=== PATIENT | female | born 1945 | race African-American/Black ===

== ENCOUNTER → 2016-03-05 | Outpatient (CLI) | payer OTHER ==
[~2016-03-05] MED LIST: ACETAMINOPHEN-1 EAC1 PO; ACETAMINOPHEN-1 EAC2 PO; ACETAMINOPHEN325 M1 PO; ADULT LOW DOSE81 MG PO; AFLURIA 2045 MCG/0.4; ALBUTEROL2.5 MG/31 IH; AMBIEN 10 MG TA10 MG PO; AMBIEN 5 MG TABL5 M1 PO; AMITRIPTYLINE H25 M2; AMITRIPTYLINE H25 M2 PO; AMLODIPINE BESY10 MG PO; AMOXICILLIN 50500 M1 PO; AMOXICILLIN PO; APRESOLINE; ASPIR 8181 MG PO; ATIVAN1 MG PO; AVELOX 400 MG400 M1 PO; BACTRIM DS TAB1 EACH PO; BENADRYL25 MG PO; BENAZEPRIL HCL10 MG PO; BENTYL 10 MG CA10 MG PO; BENTYL10 MG PO; BIAXIN 500 MG500 M1 PO; CARAFATE 1 GM TA1 GM PO; CARAFATE 11 GM/10 M1 PO; CARISOPRODOL 3350 M1 OR; CARISOPRODOL 3350 MG PO; CIPRO500 MG PO; CIPROFLOXACIN500 M3 OR; CIPROFLOXACIN500 M3 PO; CITRATE OF MAG296 ML PO; CLONIDINE HCL0.2 M2 PO; CLONIDINE HCL0.3 M2 PO; CLONIDINE TOP; COLACE 100 MG100 MG PO; COLACE100 MG PO; CYMBALTA30 MG PO; CYMBALTA60 MG; CYMBALTA60 MG PO; DOXYCYCLINE 10100 M1 PO; DUONEB 2.5-0.5 M3 ML; FEXOFENADINE H180 MG PO; FLAGYL500 MG PO; FLONASE 0.05%50 MCG NASAL; GLIPIZIDE 10 MG10 MG PO; HYDRALAZINE 2525 M1 PO; HYDRALAZINE 5050 MG PO; HYDROXYZINE HCL25 M1 PO; IMDUR 30 MG TAB30 M1 PO; IRON325 PO; K-DUR 20 MEQ T20 MEQ PO; KEFLEX500 MG PO; KEPPRA XR750 MG PO; LASIX 40 MG TAB40 M2 PO; LEVAQUIN 250 M250 MG PO; LEVAQUIN 500 M500 M2 PO; LEVAQUIN 500 M500 M3 PO; LEVAQUIN 500 M500 MG PO; LEVAQUIN 750 M750 MG PO; LEVSIN-SL0.125 MG SL; LYRICA 75 MG CA75 MG; LYRICA OR; LYRICA PO; LYRICA150 MG PO; MEDROLDOSEPACK PO; METFORMIN HCL500 MG PO; MIRALAX17 GM PO; MIRALAX255 GM PO; MS CONTIN 30 MG30 M1; MUCINEX TA600 MG/TA2 PO; MUCINEX600 MG PO; MULTIVITAMIN PO; NORCO 5-325 TA1 EACH PO; NORCO 7.5-3251 EACH PO; NORVASC10 MG PO; NOVOLOG100 UNIT/1 SUBQ; OMEPRAZOLE PO; OSTEO BI-FLEX1 EAC1 PO; OXYCODON-ACETA1 EAC1 PO; OXYCODONE HCL5 M1 PO; OXYCONTIN; OXYCONTIN10 M1 PO; OXYCONTIN20 M1; PANTOPRAZOLE SO40 M1; PHENERGAN 25 MG25 M1 PO; PNEUMOVAX25 MCG/0.5; POTASSIUM20 PO; PREDNISONE 10 M10 MG PO; PREDNISONE50 MG PO; PRILOSEC OTC20 MG PO; PROTONIX40 M1 PO; PROTONIX40 M2; PROTONIX40 M2 PO; PROVENTIL HFA6.7 G1 INH; REPLESTA50000 UNIT PO; ROXICODONE5 M1; ROXICODONE5 M2 PO; SENNA PO; SENOKOT-S1 TA1 PO; SEROQUEL XR50 MG PO; SERTRALINE HCL50 MG PO; STOOL SOFTENER1 EAC1 PO; SYMBICORT160 MCG/4. INH; SYSTANE BALANCE10 ML; TRAMADOL 50 MG50 MG PO; TUMS ULTRA400 MG; TYLENOL PM; TYLENOL325 MG PO; ULTRAM 50MG TAB50 MG PO; VENTOLIN HFA 1818 GM INH; VICODIN 5-5001 EACH PO; VIMPAT50 MG PO; XANAX 0.25 MG0.25 MG PO; ZOFRAN4 MG PO; ZOFRAN8 MG DIS; ZPAK PO; [UNRECOGNIZED DRUG - OTHER]; [UNRECOGNIZED DRUG - OTHER] PO
--- NOTE | ~2016-03-05 | CARDNUC ---
[facility] [place] [address] CARDIAC NUCLEAR IMAGING REPORT Name: MADISYNDARREL Stephani Room #: REG [facility]#: [id number] Admission: 03/05/16 Attend Phys: Siomara Kim Discharge: Date of : 49 Date of Service: 03/05/16 193 Report #: [id number] THIS REPORT FOR: //name// CC: Siomara Arora DATE OF SERVICE: 03/05/2016 VASODILATOR GATED SPECT MYOCARDIAL PERFUSION IMAGING: Regadenoson. 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 DATE OF STUDY: 03/05/2016 INDICATIONS FOR STUDY: Chest pain. RISK FACTORS: Age, hypertension, diabetes mellitus. CARDIAC HISTORY: Congestive heart failure. CARDIAC MEDICATIONS: Hydralazine, amlodipine, and Imdur. PROCEDURE: The patient was given 0.4 mg of intravenous regadenoson (Lexiscan) administered over approximately 20 seconds. The patient did not complain of chest discomfort during the infusion. At baseline the BP was 144/66 and the HR was 71; at completion of the regadenoson infusion the BP was 110/53 and the HR was 88. At completion of the recovery phase the BP was 122/50 and the HR was 78. The baseline EKG demonstrated normal sinus rhythm, nonspecific ST-T wave changes. The EKG at completion of the administration of regadenoson demonstrated no significant changes. Rhythm disturbances included none. Gated-SPECT myocardial perfusion imaging was performed using a 1-day imaging protocol and a technetium isotope technique. The 10.3 mCi of Tc-99m sestamibi was administered intravenously at rest 33.0 mCi of Tc-99m sestamibi was administered intravenously within 20 seconds of the completion of the administration of regadenoson. Imaging was obtained in the supine position and when feasible, adjunctive stress imaging in the prone position was obtained. FINDINGS: The overall quality of the study was satisfactory. There was evidence of attenuation artifact. There was no evidence of abnormal extracardiac uptake of the radionuclide. The baseline imaging study demonstrated homogeneous uptake of isotope in all segments of the myocardium with the exception of the anteroapical wall which had a region of photopenia. The imaging obtained following the administration of [facility] [address] [place] [address] CARDIAC NUCLEAR IMAGING REPORT Name: DARREL MARS Room #: REG [facility]#: [id number] Admission: 03/05/16 Attend Phys: Siomara Kim Discharge: Date of : 49 Date of Service: 03/05/16 1937 Report #: [id number] the vasodilator demonstrated no significant changes. On gated analysis the left ventricle demonstrated normal contractility. The gated ejection fraction was 82%. The left ventricle was of normal size at rest and did not dilate with administration of the vasodilator. IMPRESSIONS: CLINICAL RESPONSE: Adequate response to intravenous Lexiscan. STRESS EKG RESPONSE: Inadequate heart rate for an ECG diagnosis. MYOCARDIAL PERFUSION STUDY: Scintigraphic evidence of an anterior region of fixed photopenia without wall motion abnormality suggestive of attenuation artifact. FUNCTIONAL CAPACITY: Not assessed. CONCLUSIONS: Low risk study. <ELECTRONICALLY SIGNED> By: Serge Almazan MD 03/06/16 1235 1937 12 Serge Almazan MD /nt
== END ==
LOC: NUC 02-27 11:52
DX: R07.9 Chest pain, unspecified (principal); I50.9 Heart failure, unspecified; I10 Essential (primary) hypertension; E11.9 Type 2 diabetes mellitus without complications

== ENCOUNTER 2016-05-08 23:27 | Inpatient (IN) | payer OTHER ==
[~2016-05-08] VITALS: Ht 160 cm; Wt 68.0 kg
--- NOTE | ~2016-05-08 | EKG ---
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 : 1945 Requested By: Omega Mcclain Order Number: [id number] MD: Cash Garland Measurements Intervals [place] Rate: 87 P: -44 HI: 111 QRS: 8 QRSD: 70 T: 3 QT: 422 QTc: 508 Interpretive Statements Sinus rhythm Borderline short HI interval Nonspecific ST and T wave abnormality Prolonged QT interval Compared to ECG 05/08/2016 23:32:43 No significant changes Electronically Signed On 05-12-2016 8:58:16 CDT by Cash Garland [email or web address] <ELECTRONICALLY SIGNED> By: Cash Garland MD, [facility] 05/12/16 0858 [id number] [id number] Cash Garland MD, [facility] /EPI
--- NOTE | ~2016-05-08 | EKG ---
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 05/09/16 0851 [id number] 233 Cash Garland MD, [facility] /EPI
[2016-05-08 23:27] VITALS: BP 129/58
[~2016-05-08 23:27] MED LIST changes: -APRESOLINE; -LEVAQUIN 750 M750 MG PO; -SYSTANE BALANCE10 ML; -[UNRECOGNIZED DRUG - OTHER] PO
[2016-05-08] MEDS ORDERED: AMITRIPTYLINE H25 M2 (23:48)
[2016-05-08] MEDS ORDERED: AMBIEN 5 MG TABL5 M1 PO (23:49)
[2016-05-08] MEDS ORDERED: OXYCONTIN10 M1 PO (23:50)
[2016-05-08 23:51] LABS: HEMATOCRIT 36.4 % (37.0-47.0); MCH 32.7 pg (26.0-34.0); MCV 99.2 fL (80.0-100.0); PLATELET COUNT 261 thou/uL (150-400); RBC 3.67 mil/uL (4.20-5.00); WBC 21.8 thou/uL (4.0-11.0)
[2016-05-08] MEDS ORDERED: APRESOLINE (23:51)
[2016-05-08] MEDS ORDERED: SYSTANE BALANCE10 ML (23:52)
[2016-05-08] MEDS ORDERED: [UNRECOGNIZED DRUG - OTHER] PO (23:53)
[2016-05-08 23:54] LABS: MANUAL DIFF YES
[2016-05-09] VITALS (7 sets, daily range): BP systolic 125–161; BP diastolic 69–91
[2016-05-09 00:07] LABS: URINE BILIRUBIN NEGATIVE (Negative); URINE BLOOD TRACE (Negative); URINE COLOR YELLOW; URINE GLUCOSE-RANDOM* NEGATIVE (Negative); URINE KETONES TRACE (Negative); URINE LEUKOCYTES-REFLEX NEGATIVE (Negative); URINE PROTEIN (DIPSTICK) NEGATIVE (Negative); URINE SPECIFIC GRAVITY 1.025 (1.003-1.035); URINE UROBILINOGEN 0.2 E.U./dl (0.2-1.0)
[2016-05-09 00:11] LABS: ALBUMIN 3.4 g/dL (3.4-5.0); ALKALINE PHOSPHATASE 88 U/L (46-116); ANION GAP 11 mmol/L (7-16); BUN 17 mg/dL (7-18); CALCIUM 8.9 mg/dL (8.5-10.1); CHLORIDE 101 mmol/L (98-107); CO2 28 mmol/L (21-32); CREATININE 0.8 mg/dL (0.6-1.3); GLUCOSE 105 mg/dL (70-99); NT-PRO BRAIN NAT PEPTIDE 243 pg/mL (<300); POTASSIUM 3.3 mmol/L (3.5-5.1); SGOT 25 U/L (15-37); SGPT 13 U/L (30-65); SODIUM 140 mmol/L (136-145); TOTAL BILIRUBIN 0.6 mg/dL (<0.1-1.0); TOTAL PROTEIN 6.7 g/dL (6.4-8.2); TROPONIN-I < 0.04 ng/mL (<0.04-0.07)
[2016-05-09 00:23] LABS: ABSOLUTE NEUTROPHILS 18.3 thou/uL (1.4-8.2); TOTAL CELL COUNT 100
[2016-05-09 00:26] LABS: ABG SAMPLE TYPE ARTERIAL; BE(vivo) 1.1 mmol/L (-2 to +3); HCO3 26.9 mmol/L (22.0-26.0); LACTATE 0.81 mmol/L (0.5-2.0); O2(CT) 15.1 mL/dL (15.0-23.0); O2Hb 87.5 % (92.0-98.0); PCO2 47.7 mmHg (35.0-45.0); PO2 59.6 mmHg (80.0-100.0); STICK SITE R.BRACHIAL; pH 7.369 (7.360-7.450); sO2 89.9 % (92.0-98.0); tCO2 28.4 mmol/L (24.0-30.0)
[2016-05-09 09:11] LABS: AMP/METHAMP Negative (Negative); BARBITURATES Negative (Negative); BENZODIAZEPINES Negative (Negative); COCAINE Negative (Negative); METHADONE Negative (Negative); OPIATES POSITIVE (Negative); PCP Negative (Negative); THC Negative (Negative)
[2016-05-10 03:17] VITALS: BP 133/90
[2016-05-10 06:19] LABS: HEMATOCRIT 38.4 % (37.0-47.0); HEMOGLOBIN 12.6 gm/dL (12.0-15.0); MCH 32.3 pg (26.0-34.0); MCHC 32.7 g/dL (28.0-37.0); MCV 98.8 fL (80.0-100.0); PLATELET COUNT 303 thou/uL (150-400); RBC 3.89 mil/uL (4.20-5.00); RDW 13.2 % (10.5-14.5); WBC 17.6 thou/uL (4.0-11.0)
[2016-05-10 06:22] LABS: MANUAL DIFF YES
[2016-05-10 06:34] LABS: ALBUMIN 3.3 g/dL (3.4-5.0); CALCIUM 9.6 mg/dL (8.5-10.1); CREATININE 0.9 mg/dL (0.6-1.3); MAGNESIUM 1.9 mg/dL (1.8-2.4); POTASSIUM 3.6 mmol/L (3.5-5.1); TOTAL BILIRUBIN 0.6 mg/dL (<0.1-1.0)
[2016-05-10 07:21] VITALS: BP 154/81
[2016-05-10 08:13] LABS: ABSOLUTE NEUTROPHILS 16.5 thou/uL (1.4-8.2); TOTAL CELL COUNT 100
[2016-05-10 11:26] VITALS: BP 130/77
[2016-05-10 15:36] VITALS: BP 133/76
[2016-05-10 18:25] VITALS: BP 141/70
[2016-05-10 19:10] VITALS: BP 127/59
[2016-05-11] VITALS (7 sets, daily range): BP systolic 97–147; BP diastolic 30–86
[2016-05-11 05:41] LABS: HEMATOCRIT 38.4 % (37.0-47.0); HEMOGLOBIN 12.6 gm/dL (12.0-15.0); MCH 32.1 pg (26.0-34.0); MCHC 32.8 g/dL (28.0-37.0); MCV 97.9 fL (80.0-100.0); RBC 3.92 mil/uL (4.20-5.00); RDW 13.4 % (10.5-14.5)
[2016-05-11 05:49] LABS: CALCIUM 9.2 mg/dL (8.5-10.1); CREATININE 0.8 mg/dL (0.6-1.3); POTASSIUM 3.6 mmol/L (3.5-5.1)
[2016-05-12 03:36] VITALS: BP 140/81
[2016-05-12 04:32] LABS: HEMATOCRIT 37.1 % (37.0-47.0); HEMOGLOBIN 12.3 gm/dL (12.0-15.0); MCH 32.3 pg (26.0-34.0); RBC 3.79 mil/uL (4.20-5.00); RDW 13.1 % (10.5-14.5); WBC 13.6 thou/uL (4.0-11.0)
[2016-05-12 04:37] LABS: CALCIUM 8.7 mg/dL (8.5-10.1); CREATININE 0.7 mg/dL (0.6-1.3); POTASSIUM 3.6 mmol/L (3.5-5.1)
[2016-05-12 08:26] VITALS: BP 142/77
[2016-05-12 12:26] VITALS: BP 158/75
[2016-05-12 17:08] VITALS: BP 132/87
[2016-05-12 19:23] VITALS: BP 137/71
[2016-05-13 03:15] VITALS: BP 142/65
[2016-05-13 04:14] LABS: HEMATOCRIT 40.3 % (37.0-47.0); HEMOGLOBIN 13.3 gm/dL (12.0-15.0); MCH 32.5 pg (26.0-34.0); MCV 98.3 fL (80.0-100.0); RBC 4.1 mil/uL (4.20-5.00); RDW 12.9 % (10.5-14.5); WBC 17.8 thou/uL (4.0-11.0)
[2016-05-13 04:18] LABS: CALCIUM 9.3 mg/dL (8.5-10.1); CREATININE 0.7 mg/dL (0.6-1.3); POTASSIUM 3.6 mmol/L (3.5-5.1)
[2016-05-13 07:05] VITALS: BP 151/84
[2016-05-13 11:45] VITALS: BP 149/94
[2016-05-13 16:30] VITALS: BP 157/100
[2016-05-13 19:20] VITALS: BP 133/79
[2016-05-14 04:57] VITALS: BP 145/90
[2016-05-14 05:39] LABS: HEMATOCRIT 40.4 % (37.0-47.0); HEMOGLOBIN 13.3 gm/dL (12.0-15.0); MCH 32.1 pg (26.0-34.0); MCHC 32.9 g/dL (28.0-37.0); MCV 97.6 fL (80.0-100.0); RBC 4.13 mil/uL (4.20-5.00); RDW 13.3 % (10.5-14.5); WBC 17.6 thou/uL (4.0-11.0)
[2016-05-14 05:40] LABS: CALCIUM 9.1 mg/dL (8.5-10.1); CREATININE 0.8 mg/dL (0.6-1.3); POTASSIUM 3.5 mmol/L (3.5-5.1)
[2016-05-14 07:00] VITALS: BP 114/65
[2016-05-14 11:25] VITALS: BP 142/78
[2016-05-14 19:30] VITALS: BP 124/79
[2016-05-15 04:28] VITALS: BP 132/86
[2016-05-15 04:56] LABS: HEMATOCRIT 39.5 % (37.0-47.0); HEMOGLOBIN 12.9 gm/dL (12.0-15.0); MCH 31.9 pg (26.0-34.0); MCHC 32.8 g/dL (28.0-37.0); MCV 97.3 fL (80.0-100.0); RBC 4.06 mil/uL (4.20-5.00); RDW 13.2 % (10.5-14.5); WBC 13.6 thou/uL (4.0-11.0)
[2016-05-15 05:03] LABS: CALCIUM 9.2 mg/dL (8.5-10.1); CREATININE 0.8 mg/dL (0.6-1.3); POTASSIUM 3.7 mmol/L (3.5-5.1)
[2016-05-15 07:46] VITALS: BP 159/85
[2016-05-15 11:21] VITALS: BP 129/66
[2016-05-15 15:00] VITALS: BP 131/90
[2016-05-15 19:27] VITALS: BP 135/76
[2016-05-16 03:59] VITALS: BP 142/89
[2016-05-16 04:11] LABS: HEMATOCRIT 38.6 % (37.0-47.0); HEMOGLOBIN 13.1 gm/dL (12.0-15.0); MCH 32.9 pg (26.0-34.0); MCHC 33.9 g/dL (28.0-37.0); MCV 96.9 fL (80.0-100.0); RBC 3.98 mil/uL (4.20-5.00); RDW 13.2 % (10.5-14.5)
[2016-05-16 04:22] LABS: CREATININE 0.8 mg/dL (0.6-1.3); POTASSIUM 3.8 mmol/L (3.5-5.1)
[2016-05-16 07:12] VITALS: BP 127/70
[2016-05-16] MEDS ORDERED: FLAGYL500 MG PO (08:43)
[2016-05-16] MEDS ORDERED: OXYCONTIN10 M1 PO (08:44)
[2016-05-16] MEDS ORDERED: LEVAQUIN 750 M750 MG PO (08:47)
[2016-05-16 11:22] VITALS: BP 125/73
== END 2016-05-16 16:44 | DRG 371 ==
LOC: ER 23:27 → 2N 05-09 01:27 → EROBS 05-09 01:27 → 2N 05-09 02:31
PROVIDERS: Emergency Medicine; Hospitalist; Internal Medicine; Nurse Practitioner
DX: A04.7 Enterocolitis due to Clostridium difficile (principal); J96.01 Acute respiratory failure with hypoxia; J69.0 Pneumonitis due to inhalation of food and vomit; G92 Toxic encephalopathy; J96.02 Acute respiratory failure with hypercapnia; J44.0 Chronic obstructive pulmonary disease with (acute) lower respiratory infection; I50.9 Heart failure, unspecified; M79.7 Fibromyalgia; F41.9 Anxiety disorder, unspecified; G62.9 Polyneuropathy, unspecified; E87.6 Hypokalemia; I11.0 Hypertensive heart disease with heart failure; D64.9 Anemia, unspecified; Z79.82 Long term (current) use of aspirin; Z28.21 Immunization not carried out because of patient refusal; Z79.51 Long term (current) use of inhaled steroids; Z79.899 Other long term (current) drug therapy; Z90.710 Acquired absence of both cervix and uterus; Z90.49 Acquired absence of other specified parts of digestive tract; Z88.8 Allergy status to other drugs, medicaments and biological substances
CPT/HCPCS: 10081; 27001

== ENCOUNTER 2016-05-17 16:41 | Emergency (ER) | payer OTHER ==
[~2016-05-17] VITALS: Ht 165.1 cm; Wt 74.4 kg
[~2016-05-17 16:41] MED LIST changes: +APRESOLINE; +LEVAQUIN 750 M750 MG PO; +SYSTANE BALANCE10 ML; +[UNRECOGNIZED DRUG - OTHER] PO
[2016-05-17 18:11] LABS: HEMATOCRIT 42.6 % (37.0-47.0); HEMOGLOBIN 14.2 gm/dL (12.0-15.0); MCH 32.7 pg (26.0-34.0); MCHC 33.4 g/dL (28.0-37.0); MCV 97.9 fL (80.0-100.0); PLATELET COUNT 461 thou/uL (150-400); RBC 4.35 mil/uL (4.20-5.00); RDW 13.7 % (10.5-14.5); WBC 12.1 thou/uL (4.0-11.0)
[2016-05-17 18:12] LABS: MANUAL DIFF YES
[2016-05-17 18:18] LABS: CALCIUM 10.2 mg/dL (8.5-10.1); CREATININE 0.9 mg/dL (0.6-1.3); POTASSIUM 4.7 mmol/L (3.5-5.1)
[2016-05-17 18:30] LABS: PLATELET ESTIMATE INCREASED; TOTAL CELL COUNT 100
[2016-05-17 19:45] LABS: URINE BILIRUBIN NEGATIVE (Negative); URINE BLOOD NEGATIVE (Negative); URINE COLOR YELLOW; URINE GLUCOSE-RANDOM* NEGATIVE (Negative); URINE KETONES NEGATIVE (Negative); URINE NITRITE NEGATIVE (Negative); URINE PROTEIN (DIPSTICK) TRACE (Negative); URINE SPECIFIC GRAVITY >= 1.030 (1.003-1.035); URINE UROBILINOGEN 0.2 E.U./dl (0.2-1.0)
== END 2016-05-17 22:15 | disposition home or self-care (01) ==
LOC: ER 16:41
PROVIDERS: Nurse Practitioner
DX: S50.02XA Contusion of left elbow, initial encounter (principal); S50.01XA Contusion of right elbow, initial encounter; I50.9 Heart failure, unspecified; J44.1 Chronic obstructive pulmonary disease with (acute) exacerbation; M79.7 Fibromyalgia; I10 Essential (primary) hypertension; E87.6 Hypokalemia; F41.9 Anxiety disorder, unspecified; Z86.2 Personal history of diseases of the blood and blood-forming organs and certain disorders involving the immune mechanism; Z90.89 Acquired absence of other organs; Z88.8 Allergy status to other drugs, medicaments and biological substances; X58.XXXA Exposure to other specified factors, initial encounter; Y93.89 Activity, other specified; Y92.89 Other specified places as the place of occurrence of the external cause; Y99.9 Unspecified external cause status

== ENCOUNTER 2016-05-24 11:49 | Inpatient (IN) | payer OTHER ==
[~2016-05-24] VITALS: Ht 165.1 cm; Wt 72.6 kg
--- NOTE | ~2016-05-24 | EKG ---
[address] [place] [place] [address] ELECTROCARDIOGRAM REPORT Name: DARREL MARS Room #: 170-10 ADM IN M.R.#: [id number] Admission: 05/24/16 Attend Phys: Beatrice Isabel Discharge: Date of : 49 Report #: [id number] THIS REPORT FOR: //name// 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
[2016-05-24 11:51] VITALS: BP 169/87
[2016-05-24 12:44] LABS: HEMATOCRIT 33.4 % (37.0-47.0); HEMOGLOBIN 11.3 gm/dL (12.0-15.0); MANUAL DIFF YES; MCH 32.7 pg (26.0-34.0); MCHC 33.8 g/dL (28.0-37.0); MCV 96.8 fL (80.0-100.0); PLATELET COUNT 312 thou/uL (150-400); RBC 3.45 mil/uL (4.20-5.00); RDW 13.6 % (10.5-14.5); WBC 8.7 thou/uL (4.0-11.0)
[2016-05-24 12:49] LABS: URINE BILIRUBIN NEGATIVE (Negative); URINE BLOOD NEGATIVE (Negative); URINE COLOR YELLOW; URINE GLUCOSE-RANDOM* NEGATIVE (Negative); URINE KETONES NEGATIVE (Negative); URINE NITRITE NEGATIVE (Negative); URINE PROTEIN (DIPSTICK) NEGATIVE (Negative); URINE SPECIFIC GRAVITY 1.015 (1.003-1.035); URINE UROBILINOGEN 0.2 E.U./dl (0.2-1.0)
[2016-05-24 12:51] LABS: CALCIUM 8.9 mg/dL (8.5-10.1); CREATININE 0.7 mg/dL (0.6-1.3); POTASSIUM 3.1 mmol/L (3.5-5.1)
[2016-05-24] MEDS ORDERED: CATAPRES-TTS 20.2 MG TD (12:51)
[2016-05-24] MEDS ORDERED: NORVASC5 MG PO (12:52)
[2016-05-24] MEDS ORDERED: UNICOMPLEX M TA1 TA1 PO (12:53)
[2016-05-24 12:55] LABS: ALBUMIN 3.6 g/dL (3.4-5.0); DIRECT BILIRUBIN 0.1 mg/dL (<0.1-0.3); TOTAL BILIRUBIN 0.4 mg/dL (<0.1-1.0); TOTAL PROTEIN 6.5 g/dL (6.4-8.2)
[2016-05-24] MEDS ORDERED: TYLENOL325 MG PO (13:15)
[2016-05-24] MEDS ORDERED: AMITRIPTYLINE H50 M2 PO (13:15)
[2016-05-24] MEDS ORDERED: TUMS PO (13:17)
[2016-05-24 14:08] LABS: ABSOLUTE NEUTROPHILS 5.7 thou/uL (1.4-8.2); ATYPICAL LYMPHS 1 %; TOTAL CELL COUNT 100
[2016-05-24 15:29] VITALS: BP 138/71
[2016-05-24 19:46] VITALS: BP 150/87
[2016-05-25 03:08] VITALS: BP 155/91
[2016-05-25 08:25] VITALS: BP 162/83
[2016-05-25 15:45] VITALS: BP 137/82
[2016-05-25 20:00] VITALS: BP 139/85
[2016-05-26 04:00] VITALS: BP 139/84
[2016-05-26 06:11] LABS: CALCIUM 8.3 mg/dL (8.5-10.1); CREATININE 0.9 mg/dL (0.6-1.3)
[2016-05-26 08:30] VITALS: BP 109/68
[2016-05-26] MEDS ORDERED: AUGMENTIN 875875 MG PO (10:33)
== END 2016-05-26 13:10 | DRG 291 ==
LOC: ER 11:49 → 4N 14:01 → EROBS 14:01 → 4N 15:36
PROVIDERS: Emergency Medicine; Hospitalist
DX: I50.21 Acute systolic (congestive) heart failure (principal); J96.00 Acute respiratory failure, unspecified whether with hypoxia or hypercapnia; J18.9 Pneumonia, unspecified organism; J44.1 Chronic obstructive pulmonary disease with (acute) exacerbation; J44.0 Chronic obstructive pulmonary disease with (acute) lower respiratory infection; F41.9 Anxiety disorder, unspecified; K29.70 Gastritis, unspecified, without bleeding; M79.7 Fibromyalgia; F45.42 Pain disorder with related psychological factors; I11.0 Hypertensive heart disease with heart failure; M48.02 Spinal stenosis, cervical region; E87.6 Hypokalemia; M48.06 Spinal stenosis, lumbar region; G62.9 Polyneuropathy, unspecified; Z90.49 Acquired absence of other specified parts of digestive tract; Z90.710 Acquired absence of both cervix and uterus; Z88.6 Allergy status to analgesic agent; Z79.82 Long term (current) use of aspirin; Z79.899 Other long term (current) drug therapy
CPT/HCPCS: 10091

== ENCOUNTER 2016-06-27 12:07 | Inpatient (IN) | payer OTHER ==
[~2016-06-27 12:07] MED LIST changes: +AMITRIPTYLINE H50 M2 PO; +AUGMENTIN 875875 MG PO; +CATAPRES-TTS 20.2 MG TD; +NORVASC5 MG PO; +TUMS PO; +UNICOMPLEX M TA1 TA1 PO
[2016-06-27 12:45] VITALS: BP 137/73
[2016-06-27] MEDS ORDERED: PREDNISONE 10 M10 MG PO (14:31)
[2016-06-27 14:33] LABS: ABSOLUTE NEUTROPHILS 5.3 thou/uL (1.4-8.2); BASOPHILS 0.9 % (0.0-2.0); EOSINOPHILS 0.5 % (0.0-3.0); HEMATOCRIT 32.1 % (37.0-47.0); HEMOGLOBIN 10.5 gm/dL (12.0-15.0); LYMPHOCYTES 22.2 % (24.0-44.0); MCH 31.8 pg (26.0-34.0); MCHC 32.9 g/dL (28.0-37.0); MCV 96.6 fL (80.0-100.0); MONOCYTES 4.8 % (1.0-8.0); PLATELET COUNT 447 thou/uL (150-400); POLYS 71.6 % (36.0-66.0); RBC 3.32 mil/uL (4.20-5.00); WBC 7.4 thou/uL (4.0-11.0)
[2016-06-27] MEDS ORDERED: CYMBALTA60 MG PO (14:33)
[2016-06-27] MEDS ORDERED: FLONASE 0.05%50 MCG NASAL (14:33)
[2016-06-27 14:34] LABS: MANUAL DIFF NO
[2016-06-27] MEDS ORDERED: VIMPAT50 MG PO (14:34)
[2016-06-27] MEDS ORDERED: LYRICA 75 MG CA75 MG PO (14:38)
[2016-06-27] MEDS ORDERED: HYDRALAZINE 2525 MG PO (14:38)
[2016-06-27] MEDS ORDERED: SYSTANE 0.3-0.1 EACH OPHTHALMIC (14:40)
[2016-06-27] MEDS ORDERED: DUONEB 2.5-0.5 M3 ML INH (14:40)
[2016-06-27] MEDS ORDERED: ROBAFEN DM CGH118 ML PO (14:42)
[2016-06-27] MEDS ORDERED: OXYCONTIN20 M1 PO (14:44)
[2016-06-27] MEDS ORDERED: OXYCONTIN15 MG PO (14:45)
[2016-06-27] MEDS ORDERED: MUCINEX TA600 MG/TA2 PO (14:46)
[2016-06-27 14:51] LABS: CALCIUM 8.9 mg/dL (8.5-10.1); CREATININE 0.5 mg/dL (0.6-1.0); POTASSIUM 3.5 mmol/L (3.5-5.1)
[2016-06-27 17:38] VITALS: BP 165/73
[2016-06-27 20:05] VITALS: BP 133/85
[2016-06-28 04:15] VITALS: BP 150/83
[2016-06-28 05:45] LABS: HEMATOCRIT 35.5 % (37.0-47.0); HEMOGLOBIN 11.9 gm/dL (12.0-15.0); MCHC 33.7 g/dL (28.0-37.0); MCV 94.9 fL (80.0-100.0); RBC 3.73 mil/uL (4.20-5.00); RDW 14.4 % (10.5-14.5); WBC 6.6 thou/uL (4.0-11.0)
[2016-06-28 06:08] LABS: ALBUMIN 3.2 g/dL (3.4-5.0); CALCIUM 8.9 mg/dL (8.5-10.1); CREATININE 0.7 mg/dL (0.6-1.0); TOTAL BILIRUBIN 0.3 mg/dL (<0.1-1.0); TOTAL PROTEIN 7.1 g/dL (6.4-8.2)
[2016-06-28 08:00] VITALS: BP 133/68
[2016-06-28] MEDS ORDERED: PREDNISONE 10 M10 MG PO (11:40)
[2016-06-28] MEDS ORDERED: LEVAQUIN 750 M750 MG PO (12:27)
== END 2016-06-28 14:45 | DRG 194 ==
LOC: 4S 12:07
PROVIDERS: Internal Medicine
DX: J18.9 Pneumonia, unspecified organism (principal); E44.1 Mild protein-calorie malnutrition; F41.9 Anxiety disorder, unspecified; K29.70 Gastritis, unspecified, without bleeding; I11.0 Hypertensive heart disease with heart failure; I50.9 Heart failure, unspecified; M48.02 Spinal stenosis, cervical region; G89.29 Other chronic pain; M48.06 Spinal stenosis, lumbar region; Z90.710 Acquired absence of both cervix and uterus; Z90.49 Acquired absence of other specified parts of digestive tract; Z88.6 Allergy status to analgesic agent; Z79.82 Long term (current) use of aspirin; Z79.899 Other long term (current) drug therapy
CPT/HCPCS: 10100